=== PATIENT | male | born 1985 | race Caucasian/White ===

== ENCOUNTER 2017-11-16 12:54 | Emergency (ER) | payer OTHER ==
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
[2017-11-16 13:15] VITALS: BP 134/59; PULSE 76; TEMP 98.5; BMI 29.2
[2017-11-16] MEDS ORDERED: CYCLOBENZAPRINE HCL 10 MG TABLET (FP) PO ONE (13:35)
[2017-11-16] MEDS ORDERED: CYCLOBENZAPRINE HCL 10 MG TABLET (FP) ONE (13:40)
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
== END 2017-11-16 15:36 | disposition home or self-care (01) ==
LOC: JER 12:54
DX: M54.5 Low back pain (principal)
CPT/HCPCS: 72100-TC-FY; 99281-25